=== PATIENT | female | born 1945 | race Caucasian/White ===

== ENCOUNTER 2017-04-06 00:10 | Emergency (ER) | payer MEDICARE, BC, OTHER ==
[2017-04-06] MEDS ORDERED: METHYLPREDNISOLONE INJ 125 MG/2 ML SDV IV ONE (01:31)
[2017-04-06] MEDS ORDERED: IPRATROPIUM/ALBUTEROL 0.5-2.5 MG/3 ML AMPUL NEB ONE (01:31)
[2017-04-06] MEDS ORDERED: ALBUTEROL SULFATE 0.083% NEB 2.5 MG/3 ML AMPUL NEB SCH (01:46)
[2017-04-06] MEDS ORDERED: PREDNISONE 20 MG TABLET PO ONE (02:16)
[2017-04-06] MEDS ORDERED: BENZONATATE 100 MG CAPSULE PO ONE (02:16)
--- NOTE | 2017-04-06 02:19 | ER Document Report ---
ED General - General Chief Complaint: Asthma Exacerbation Stated Complaint: DIFFICULTY BREATHING Time Seen by Provider: 04/06/17 02:04 Notes: Patient is a 72-year-old female with a past medical history of asthma and COPD currently on multiple chronic control medications who presents with 2 weeks of persistent cough and shortness of breath. She states that she had a coughing fit earlier prior to arrival which she felt like she could not breathe during. This prompted her to come to the emergency department for their assessment. She has been using her albuterol inhalers at home with moderate improvement of her symptoms. She is our primary care doctor was started on a course of Augmentin as well as steroids but states this is not completely resolved her symptoms. She is follows with to pulmonology for her underlying COPD and asthma and has a appointment scheduled with him next week. She denies any fever or constitutional symptoms. No known sick contacts. She denies any sputum production. No syncope or chest pain. She states her symptoms are very similar to when she has had bronchitis in the past. TRAVEL OUTSIDE OF THE [place] IN LAST 30 DAYS: No - Related Data Allergies/Adverse Reactions: No Known Allergies Allergy (Verified 04/05/13 14:42) Past Medical History - General Information source: Patient - Social History Smoking Status: Never Smoker Frequency of alcohol use: None Drug Abuse: None Lives with: Spouse/Significant other Family History: Reviewed & Not Pertinent - Past Medical History Cardiac Medical History: Reports: Hx Hypercholesterolemia Malignancy Medical History: Reports: Hx Lung Cancer Past Surgical History: Reports: Hx Orthopedic Surgery - Immunizations Hx Diphtheria, Pertussis, Tetanus Vaccination: Yes Review of Systems - Review of Systems Notes: Constitutional: Negative for fever. HENT: Negative for sore throat. Eyes: Negative for visual changes. Cardiovascular: Negative for chest pain. Respiratory: Positive for shortness of breath. Gastrointestinal: Negative for abdominal pain, vomiting or diarrhea. Genitourinary: Negative for dysuria. Musculoskeletal: Negative for back pain. Skin: Negative for rash. Neurological: Negative for headaches, weakness or numbness. 10 point ROS negative except as marked above and in HPI. Physical Exam - Vital signs Vitals: Temp Pulse Resp BP Pulse Ox 97.9 F 108 H 20 158/76 H 98 04/06/17 00:17 04/06/17 00:17 04/06/17 00:17 04/06/17 00:17 04/06/17 00:17 Interpretation: Tachycardic Notes: PHYSICAL EXAMINATION: GENERAL: Well-appearing, well-nourished and in no acute distress. HEAD: Atraumatic, normocephalic. EYES: Pupils equal round and reactive to light, extraocular movements intact, sclera anicteric, conjunctiva are normal. ENT: nares patent, oropharynx clear without exudates. Moist mucous membranes. NECK: Normal range of motion, supple without lymphadenopathy LUNGS: Coarse breath sounds in the expiratory phase in all lung mendoza with trace end expiratory wheezing and rhonchorous breath sounds. No distress or limited air movement. HEART: Regular rate and rhythm without murmurs ABDOMEN: Soft, nontender, normoactive bowel sounds. No guarding, no rebound. No masses appreciated. EXTREMITIES: Normal range of motion, no pitting or edema. No cyanosis. NEUROLOGICAL: No focal neurological deficits. Moves all extremities spontaneously and on command. PSYCH: Normal mood, normal affect. SKIN: Warm, Dry, normal turgor, no rashes or lesions noted. Course - Re-evaluation Re-evalutation: 04/06/17 02:16 Patient presents with a mild exacerbation of their baseline asthma. Mild wheezing at time of presentation but vitals do not show significant hypoxemia or tachypnea. No retractions. Patient did clinically improve after receiving nebulizers here in the emergency department. Chest x-ray without evidence of an acute pneumonia. Patient able to ambulate without any respiratory distress. Based on patient's overall reassuring assessment, I believe they are stable for outpatient management with steroids. I do not suspect an acute alternative pathology at this time based on history and exam including acute pulmonary embolus, ACS, pneumothorax, or aortic dissection. At this time will discharge with return precautions and follow-up recommendations. Verbal discharge instructions given a the bedside and opportunity for questions given. Medication warnings reviewed. Patient is in agreement with this plan and has verbalized understanding of return precautions and the need for primary care follow-up in the next 24-72 hours. - Vital Signs Vital signs: Temp Pulse Resp BP Pulse Ox 97.9 F 108 H 20 158/76 H 98 04/06/17 00:17 04/06/17 00:17 04/06/17 00:17 04/06/17 00:17 04/06/17 00:17 - Laboratory Result Diagrams: 04/06/17 02:20 - Diagnostic Test Radiology reviewed: Image reviewed, Reports reviewed Radiology results interpreted by me: 04/06/17 02:17 Chest x-ray: No acute infiltrate or pneumothorax Discharge - Discharge Clinical Impression: Bronchitis Asthma exacerbation Qualifiers: Asthma severity: moderate Asthma persistence: persistent Qualified Code(s): J45.41 - Moderate persistent asthma with (acute) exacerbation Condition: Good Disposition: HOME, SELF-CARE Additional Instructions: You were seen for an asthma exacerbation. Your symptoms improved with treatment here in the emergency department. However, it is very important that you return to the emergency department immediately if you began to have worsening difficulty breathing that does not respond to your normal home nebulizers. You are also being sent home on a five-day course of steroids that you should start taking tomorrow. Please also follow closely with your primary care physician. you should also return to emergency department if you develop fever greater than 101, persistent cough, persistent vomiting, pass out, or any other symptoms that are concerning to you. Prescriptions: Benzonatate [Tessalon Perle 100 mg Capsule] 100 mg PO Q8HP PRN #40 cap PRN Reason: Prednisone [Deltasone 20 mg Tablet] 3 tab PO DAILY 5 Days tablet
[2017-04-06 02:57] LABS: ANION GAP 10 (5-19); BLOOD UREA NITROGEN 15 mg/dL (7-20); CALCIUM 10.6 mg/dL (8.4-10.2); CARBON DIOXIDE 29 mmol/L (22-30); CHLORIDE 103 mmol/L (98-107); GLUCOSE 108 mg/dL (75-110); POTASSIUM 4.6 mmol/L (3.6-5.0); SODIUM 141.6 mmol/L (137-145)
--- NOTE | 2017-04-06 03:01 | RADIOLOGY REPORT (SQ) ---
EXAM DESCRIPTION: CHEST SINGLE VIEW CLINICAL HISTORY: 72 years, Female, SOB COMPARISON: None. FINDINGS: Normal lung volume, clear parenchyma, normal cardiac silhouette, and partially imaged screw fixation of the left humeral head. IMPRESSION: No acute cardiopulmonary findings. 2011 [employer]- All Rights Reserved
[2017-04-06 03:37] VITALS: BP 145/75
== END 2017-04-06 03:36 | disposition home or self-care (01) ==
LOC: ER 00:10
DX: J45.41 Moderate persistent asthma with (acute) exacerbation (principal); J44.9 Chronic obstructive pulmonary disease, unspecified; Z79.899 Other long term (current) drug therapy; R05 Cough; R06.02 Shortness of breath; Z85.118 Personal history of other malignant neoplasm of bronchus and lung
CPT/HCPCS: 94640; 99285; 36415; 80048; 71045; A9270 ×3; J7512; J7620

== ENCOUNTER → 2017-08-16 | Outpatient (CLI) | payer MEDICARE, BC, OTHER ==
--- NOTE | 2017-08-16 13:51 | RADIOLOGY REPORT (SQ) ---
EXAM DESCRIPTION: CHEST 2 VIEWS COMPLETED DATE/TIME: 08/16/2017 1:04 pm REASON FOR STUDY: CHRONIC OBSTRUCTIVE PULMONARY DISEASE, UNSPECIFIED COMPARISON: None. EXAM PARAMETERS: NUMBER OF VIEWS: two views TECHNIQUE: Digital Frontal and Lateral radiographic views of the chest acquired. RADIATION DOSE: NA LIMITATIONS: none FINDINGS: LUNGS AND PLEURA: No opacities, masses or pneumothorax. No pleural effusion. MEDIASTINUM AND HILAR STRUCTURES: Faintly radiopaque surgical diann are seen along the right suprah ilar region partial resection right upper lobe. HEART AND VASCULAR STRUCTURES: Heart normal size. No evidence for failure. BONES: Osteoporotic HARDWARE: Fracture stabilization hardware left proximal humerus OTHER: No other significant finding. IMPRESSION: No acute changes TECHNICAL DOCUMENTATION: JOB ID: [id number] [email or web address]- All Rights Reserved Reading location - IP/workstation name: [email or web address]
== END ==
LOC: OD 12:48
PROVIDERS: ATTEND Student in an Organized Health Care Education/Training Program
DX: J44.9 Chronic obstructive pulmonary disease, unspecified (principal); J18.9 Pneumonia, unspecified organism
CPT/HCPCS: 71046

== ENCOUNTER 2018-01-07 12:33 | Inpatient (IN) | payer MEDICARE, BC, OTHER ==
--- NOTE | 2018-01-07 13:29 | ER Document Report ---
ED Medical Screen (RME) - General Chief Complaint: Cough Stated Complaint: WHEEZING Time Seen by Provider: 01/07/18 13:20 Notes: Patient is a 72-year-old female with COPD, chronic bronchitis that presents to the emergency department for chief complaint of productive cough and shortness of breath. Patient reports that the symptoms have been worsening over the past several days, she has had green productive sputum, sinus congestion, and shortness of breath particular with exertion. She is unaware of any sick contacts, she has not received her influenza vaccine, she has been using her home inhalers without much improvement. ROS: Unless otherwise stated in this report the patient's positive and negative responses for review of systems for constitutional, eyes, ENT, cardiovascular, respiratory, gastrointestinal, neurological, genitourinary, musculoskeletal, and integumentary systems and related systems to the presenting problem are either as stated in the HPI or were not pertinent or were negative for the symptoms and/or complaints related to the presenting medical problem. PHYSICAL EXAMINATION: Vital signs reviewed. GENERAL: Well-appearing, well-nourished and in no acute distress. HEAD: Atraumatic, normocephalic. EYES: Pupils equal round extraocular movements intact, conjunctiva are normal. ENT: Nares patent NECK: Normal range of motion CV: Heart regular rate and rhythm LUNGS: Diffuse wheezing throughout all lung mendoza, and rhonchi bilaterally Musculoskeletal: Normal range of motion NEUROLOGICAL: Normal speech PSYCH: Normal mood, normal affect. MDM: Patient seen and examined for rapid initial assessment. Vital signs reviewed. A comprehensive ED assessment and evaluation of the patient, analysis of test results and completion of the medical decision making process will be conducted by additional ED providers. *Note is created using voice recognition software and may contain spelling, syntax or grammatical errors. TRAVEL OUTSIDE OF THE [place] IN LAST 30 DAYS: No - Related Data Allergies/Adverse Reactions: montelukast [From Singulair] Allergy (Verified 01/07/18 13:24) Past Medical History - Social History Frequency of alcohol use: None Drug Abuse: None - Past Medical History Cardiac Medical History: Reports: Hx Hypercholesterolemia Pulmonary Medical History: Reports: Hx Asthma, Hx Bronchitis, Hx COPD Renal/ Medical History: Denies: Hx Peritoneal Dialysis Malignancy Medical History: Reports: Hx Lung Cancer GI Medical History: Reports: Hx Gastroesophageal Reflux Disease Musculoskeltal Medical History: Reports Hx Arthritis Past Surgical History: Reports: Hx Orthopedic Surgery - left arm, left foot - Immunizations Hx Diphtheria, Pertussis, Tetanus Vaccination: Yes Physical Exam - Vital signs Vitals: Temp Pulse Resp BP Pulse Ox 98.3 F 109 H 22 H 140/79 H 95 01/07/18 12:47 01/07/18 12:47 01/07/18 12:47 01/07/18 12:47 01/07/18 12:47 Course - Vital Signs Vital signs: Temp Pulse Resp BP Pulse Ox 98.3 F 109 H 22 H 140/79 H 95 01/07/18 12:47 01/07/18 12:47 01/07/18 12:47 01/07/18 12:47 01/07/18 12:47 Doctor's Discharge - Discharge Referrals: JENNIFER HAMMONDS DO [Primary Care Provider] - Follow up as needed
[2018-01-07] MEDS ORDERED: IPRATROPIUM/ALBUTEROL 0.5-2.5 MG/3 ML AMPUL NEB ONE ×2 (13:30→15:28)
[2018-01-07] MEDS ORDERED: BUDESONIDE NEB 0.5 MG/2 ML AMPUL NEB ONE (13:30)
[2018-01-07] MEDS ORDERED: METHYLPREDNISOLONE INJ 125 MG/2 ML SDV IV ONE (13:30)
[2018-01-07 14:15] LABS: ABSOLUTE LYMPHOCYTES (AUTO) 2.2 10^3/uL (0.5-4.7); ABSOLUTE MONOCYTES (AUTO) 0.5 10^3/uL (0.1-1.4); ABSOLUTE NEUT (AUTO) 4.6 10^3/uL (1.7-8.2); BASOPHILS % (AUTO) 0.4 % (0-2); HEMOGLOBIN 14.3 g/dL (12.0-15.5); LYMPHOCYTES % (AUTO) 29.6 % (13-45); MEAN CORPUSCULAR VOLUME 88 fl (80-97); MONOCYTES % (AUTO) 6.8 % (3-13); PLATELET COUNT 303 10^3/uL (150-450); RED BLOOD COUNT 4.76 10^6/uL (3.72-5.28); RED CELL DISTRIBUTION WIDTH 13.6 % (11.5-14.0); SEGMENTED NEUTROPHILS % (AUTO) 63.2 % (42-78); TOTAL CELLS COUNTED % (AUTO) 100 %; WHITE BLOOD COUNT 7.3 10^3/uL (4.0-10.5)
[2018-01-07 14:33] LABS: ALANINE AMINOTRANSFERASE 21 U/L (9-52); ALBUMIN 4.5 g/dL (3.5-5.0); ALKALINE PHOSPHATASE 42 U/L (38-126); ANION GAP 8 (5-19); ASPARTATE AMINO TRANSFERASE 43 U/L (14-36); BILIRUBIN,DIRECT 0.4 mg/dL (0.0-0.4); BILIRUBIN,TOTAL 0.7 mg/dL (0.2-1.3); BLOOD UREA NITROGEN 11 mg/dL (7-20); CALCIUM 9.7 mg/dL (8.4-10.2); CARBON DIOXIDE 31 mmol/L (22-30); CHLORIDE 101 mmol/L (98-107); GLUCOSE 97 mg/dL (75-110); POTASSIUM 4.3 mmol/L (3.6-5.0); SODIUM 140.1 mmol/L (137-145); TOTAL PROTEIN 7.7 g/dL (6.3-8.2)
--- NOTE | 2018-01-07 14:36 | RADIOLOGY REPORT (SQ) ---
EXAM DESCRIPTION: CHEST SINGLE VIEW COMPLETED DATE/TIME: 01/07/2018 2:27 pm REASON FOR STUDY: cough, shortness of breath COMPARISON: 08/16/2017 EXAM PARAMETERS: NUMBER OF VIEWS: One view. TECHNIQUE: Single frontal radiographic view of the chest acquired. RADIATION DOSE: NA LIMITATIONS: None. FINDINGS: LUNGS AND PLEURA: The lungs are hyperexpanded. There is no infiltrate, effusion, or mass. MEDIASTINUM AND HILAR STRUCTURES: No masses. Contour normal. HEART AND VASCULAR STRUCTURES: Heart normal in size. Normal vasculature. BONES: No acute findings. HARDWARE: None in the chest. OTHER: No other significant finding. IMPRESSION: Chronic lung changes with no acute cardiopulmonary disease. TECHNICAL DOCUMENTATION: JOB ID: [id number] [employer]- All Rights Reserved Reading location - IP/workstation name: [email or web address]
--- NOTE | 2018-01-07 16:35 | RADIOLOGY REPORT (SQ) ---
EXAM DESCRIPTION: CTA CHEST COMPLETED DATE/TIME: 01/07/2018 4:14 pm REASON FOR STUDY: shortness of breath COMPARISON: None. TECHNIQUE: CT scan of the chest performed using helical scanning technique with dynamic intravenous contrast injection. Images reviewed with lung, soft tissue and bone windows. Reconstructed coronal and sagittal MPR images reviewed. Additional 3 dimensional post-processing performed to develop Maximal Intensity Projection images (IL P). All images stored on PACS. All CT scanners at this facility use dose modulation, iterative reconstruction, and/or weight based d osing when appropriate to reduce radiation dose to as low as reasonably achievable (ALARA). [facility]: Dose Right [facility]: CareDose [facility]: Dose Right [facility]: Teradose 4D [facility]: [employer] CONTRAST TYPE AND DOSE: contrast/concentration: Isovue 350.00 mg/ml; Total Contrast Delivered: 64.0 ml; Total Saline Delivered: 90.0 ml Contrast bolus optimized for the pulmonary arteries. Not diagnostic for the aorta. RENAL FUNCTION: GFR > 60. RADIATION DOSE: CT Rad equipment meets quality standard of care and radiation dose reduction techniq ues were employed. CTDIvol: 14.3 - 16.5 mGy. DLP: 526 mGy-cm. . LIMITATIONS: None. FINDINGS: LUNGS AND PLEURA: No masses, infiltrates, or pneumothorax. No pleural effusions or pleura l calcifications. AORTA AND GREAT VESSELS: No aneurysm. Contrast bolus not optimized for the aorta. HEART: No pericardial effusion. PULMONARY ARTERIES: No emboli visualized in the main pulmonary arteries or the segmental branches. HILAR AND MEDIASTINAL STRUCTURES: No identified masses or abnormal nodes. HARDWARE: None in the chest. UPPER ABDOMEN: No significant findings. Limited exam. THYROID AND OTHER SOFT TISSUES: No masses. No adenopathy. BONES: No acute or significant finding. 3D MIPS: Confirm above findings. OTHER: No other significant finding. IMPRESSION: No evidence of pulmonary embolus. COMMENT: Quality ID # [id number]: Final reports with documentation of one or more dose reduction techniques (e.g., Automated exposure control, adjustment of the mA and/or kV according to patient size, use of iterative reconstruction technique) TECHNICAL DOCUMENTATION: JOB ID: [id number] [employer]- All Rights Reserved Reading location - IP/workstation name: [email or web address]
--- NOTE | 2018-01-07 17:26 | ER Document Report ---
ED General - General Chief Complaint: Cough Stated Complaint: WHEEZING Time Seen by Provider: 01/07/18 13:20 Mode of Arrival: Ambulatory Information source: Patient Notes: 72-year-old female presents emergency department with a 3-day history of a productive cough. Patient states that she has been coughing up green sputum. She is been having intermittent fever and chills. Patient does have a history of COPD. She is not on home oxygen. Patient states that she does use a nebulizer. She is not on any steroids or antibiotics at this time. Patient states that her nebulizer treatments are not helping. TRAVEL OUTSIDE OF THE [place] IN LAST 30 DAYS: No - HPI Onset: Other - 3 day Onset/Duration: Gradual Quality of pain: No pain Severity: None Associated symptoms: Chills, Productive cough, Fever Exacerbated by: Denies Relieved by: Denies Similar symptoms previously: Yes Recently seen / treated by doctor: No - Related Data Allergies/Adverse Reactions: montelukast [From Singulair] Allergy (Verified 01/07/18 13:24) Past Medical History - General Information source: Patient - Social History Smoking Status: Former Smoker Frequency of alcohol use: None Drug Abuse: None Family History: Reviewed & Not Pertinent Patient has suicidal ideation: No Patient has homicidal ideation: No - Past Medical History Cardiac Medical History: Reports: Hx Hypercholesterolemia Pulmonary Medical History: Reports: Hx Asthma, Hx Bronchitis, Hx COPD Renal/ Medical History: Denies: Hx Peritoneal Dialysis Malignancy Medical History: Reports: Hx Lung Cancer GI Medical History: Reports: Hx Gastroesophageal Reflux Disease Musculoskeletal Medical History: Reports Hx Arthritis Past Surgical History: Reports: Hx Orthopedic Surgery - left arm, left foot - Immunizations Hx Diphtheria, Pertussis, Tetanus Vaccination: Yes Review of Systems - Review of Systems Constitutional: Chills, Fever EENT: No symptoms reported Cardiovascular: No symptoms reported Respiratory: Short of breath, Wheezing Gastrointestinal: No symptoms reported Genitourinary: No symptoms reported Female Genitourinary: No symptoms reported Musculoskeletal: No symptoms reported Skin: No symptoms reported Hematologic/Lymphatic: No symptoms reported Neurological/Psychological: No symptoms reported -: Yes All other systems reviewed and negative Physical Exam - Vital signs Vitals: Temp Pulse Resp BP Pulse Ox 98.3 F 109 H 22 H 140/79 H 95 01/07/18 12:47 01/07/18 12:47 01/07/18 12:47 01/07/18 12:47 01/07/18 12:47 - General Notes: PHYSICAL EXAMINATION: GENERAL: Well-appearing, well-nourished and in no acute distress. HEAD: Atraumatic, normocephalic. EYES: Pupils equal round and reactive to light, extraocular movements intact, conjunctiva are normal. ENT: Nares patent, oropharynx clear without exudates. Moist mucous membranes. NECK: Normal range of motion, supple without lymphadenopathy LUNGS: Breath sounds clear to auscultation bilaterally and equal. Diffuse wheezing. HEART: Regular rate and rhythm without murmurs ABDOMEN: Soft, nontender, nondistended abdomen. No guarding, no rebound. No masses appreciated. Female : deferred Musculoskeletal: Normal range of motion, no pitting or edema. No cyanosis. NEUROLOGICAL: Cranial nerves grossly intact. Normal speech, normal gait. Normal sensory, motor exams PSYCH: Normal mood, normal affect. SKIN: Warm, Dry, normal turgor, no rashes or lesions noted. Course - Re-evaluation Re-evalutation: 01/07/18 17:24 Labs and imaging obtained. No acute process was identified. Patient was having severe shortness of breath and a CTA of the chest was ordered. No PE was seen. Patient was placed on BiPAP. Patient remove the BiPAP herself. Patient states that she did not want to wear it. Patient was given another DuoNeb treatment. She is breathing easier now. I discussed admission with the patient. She is agreeable with staying in the hospital. Patient is currently stable. I spoke with the hospitalist, . He's agreeable with admitting the patient. - Vital Signs Vital signs: Temp Pulse Resp BP Pulse Ox 98.3 F 109 H 28 H 140/79 H 100 01/07/18 12:47 01/07/18 12:47 01/07/18 15:59 01/07/18 12:47 01/07/18 15:59 - Laboratory Result Diagrams: 01/07/18 14:01 01/07/18 14:01 Laboratory results interpreted by me: 01/07/18 14:01 Carbon Dioxide 31 H AST 43 H Discharge - Discharge Clinical Impression: COPD exacerbation Condition: Good Disposition: ADMITTED OBSERVATION Admitting Provider: Hospitalist Unit Admitted: Telemetry Referrals: JENNIFER HAMMONDS DO [Primary Care Provider] - Follow up as needed
[2018-01-07 17:46] LABS: ARTERIAL BLOOD BASE EXCESS -0.2 mmol/L; ARTERIAL BLOOD H2CO3 1.08 mmol/L (1.05-1.35); ARTERIAL BLOOD HCO3 23.6 mmol/L (20-24); ARTERIAL BLOOD O2 SATURATION 95.8 % (94-98); ARTERIAL BLOOD PH 7.43 (7.35-7.45); ARTERIAL BLOOD PO2 76.7 mmHg (80-100); ARTERIAL BLOOD TOTAL CO2 24.7 mmol/L (21-25)
[2018-01-07 17:47] LABS: ARTERIAL BLOOD FIO2 ROOM AIR
[2018-01-07] MEDS ORDERED: IPRATROPIUM/ALBUTEROL 0.5-2.5 MG/3 ML AMPUL NEB PRN (18:00)
--- NOTE | 2018-01-07 18:24 | PDOC H&P ---
History of Present Illness Admission Date/PCP: 01/07/18 17:54 JENNIFER HAMMONDS DO Patient complains of: Shortness of breath, cough History of Present Illness: ANDREY ARANDA is a 72 year old female past medical history of chronic bronchitis, lung cancer status post right lower lobe lobectomy, asthma ( received 2 doses of Benralizumab this year, her been intubated), COPD not on home oxygen, former smoker, quit 25 years ago, GERD resenting to ED complaining of any shortness of breath, which pleuritic chest pain and low productive cough. She denies any recent travel but has been exposed to other people with upper respiratory infections. She denies any fever, chills, nausea, vomiting, abdominal pain, diarrhea, constipation, urinary symptoms, melena, hematochezia or any lower or upper extremity swelling. In ED she was found to be wheezing was placed on BiPAP could not tolerated. CTA chest was negative for PE. Hospitalist was consulted for admission. Past Medical History Cardiac Medical History: Reports: Hyperlipidema Pulmonary Medical History: Reports: Asthma, Bronchitis, Chronic Obstructive Pulmonary Disease (COPD) Malignancy Medical History: Reports: Lung Cancer GI Medical History: Reports: Gastroesophageal Reflux Disease Musculoskeltal Medical History: Reports: Arthritis Past Surgical History Past Surgical History: Reports: Orthopedic Surgery - left arm, left foot Social History Smoking Status: Former Smoker Family History Family History: Reviewed & Not Pertinent Parental Family History Reviewed: Yes Children Family History Reviewed: Yes Sibling(s) Family History Reviewed.: Yes Medication/Allergy Home Medications: Albuterol Sulfate [Ventolin HFA MDI 18 GM] 2 puff IH Q6HP PRN 01/07/18 Azelastine/Fluticasone [Dymista Nasal Morton] 1 spray NAREB BID 01/07/18 Mometasone Furoate [Asmanex Hfa] 2 puff IH Q12 01/07/18 Omeprazole 40 mg PO DAILY 01/07/18 Tiotropium Tecumseh [Spiriva Handihaler 5 Cap/Kit (18 Mcg/Cap)] 1 cap IH DAILY Allergies/Adverse Reactions: montelukast [From Singulair] Allergy (Verified 01/07/18 13:24) Physical Exam Vital Signs: Temp Pulse Resp BP Pulse Ox 98.3 F 109 H 28 H 140/79 H 100 01/07/18 12:47 01/07/18 12:47 01/07/18 15:59 01/07/18 12:47 01/07/18 15:59 General appearance: PRESENT: no acute distress, well-developed, well-nourished Neck exam: ABSENT: carotid bruit, JVD, lymphadenopathy, thyromegaly Respiratory exam: PRESENT: crackles - Left lower lobe, decreased breath sounds, prolonged expiratory phas. ABSENT: rales, rhonchi, wheezes GI/Abdominal exam: PRESENT: normal bowel sounds, soft. ABSENT: distended, guarding, mass, organolmegaly, rebound, tenderness Neurological exam: PRESENT: alert, awake, oriented to person, oriented to place , oriented to time, oriented to situation, CN II-XII grossly intact. ABSENT: motor sensory deficit Skin exam: PRESENT: dry, intact, warm. ABSENT: cyanosis, rash Results Impressions: Chest X-Ray 01/07/18 13:29 IMPRESSION: Chronic lung changes with no acute cardiopulmonary disease. Chest/Abdomen CTA 01/07/18 15:29 IMPRESSION: No evidence of pulmonary embolus. Assessment & Plan - Diagnosis (1) COPD exacerbation Is this a current diagnosis for this admission?: Yes Plan: Due to chronic smoking. Admit to telemetry, empiric antibiotics, urine culture , DuoNeb, LABA/JOVANNI, Nocturnal BiPAP, steroids. (2) Asthma Is this a current diagnosis for this admission?: No Plan: As problem #1. Patient has established pulmonary care as outpatient. (3) GERD (gastroesophageal reflux disease) Is this a current diagnosis for this admission?: Yes Plan: Restart PPI. H&H stable. Outpatient GI follow-up
[2018-01-07] MEDS ORDERED: AZITHROMYCIN 500 MG in DEXTROSE 5%-WATER 250 ML IV SCH (19:30)
[2018-01-07] MEDS: ENOXAPARIN SODIUM INJ 40 MG/0.4 ML DISP.SYRIN SUBCUT SCH (20:42)
[2018-01-07] MEDS: GUAIFENESIN 600 MG TABLET.SA PO SCH (22:39)
--- NOTE | 2018-01-07 23:20 | EKG REPORT ---
SEVERITY:- BORDERLINE ECG - SINUS RHYTHM PROBABLE LEFT ATRIAL ABNORMALITY BORDERLINE RIGHT AXIS DEVIATION MINIMAL ST DEPRESSION, INFERIOR LEADS : Confirmed by: Marbin Regalado 07-Jan-2018 23:19:27
[2018-01-08] MEDS ORDERED: LANSOPRAZOLE 30 MG TAB.RAP.DR PO SCH (06:00)
[2018-01-08 06:37] LABS: ABSOLUTE LYMPHOCYTES (AUTO) 1.5 10^3/uL (0.5-4.7); ABSOLUTE MONOCYTES (AUTO) 0.3 10^3/uL (0.1-1.4); ABSOLUTE NEUT (AUTO) 4.8 10^3/uL (1.7-8.2); BASOPHILS % (AUTO) 0.4 % (0-2); HEMATOCRIT 40.2 % (36.0-47.0); HEMOGLOBIN 13.6 g/dL (12.0-15.5); LYMPHOCYTES % (AUTO) 22.9 % (13-45); MEAN CORPUSCULAR HEMOGLOBIN 29.8 pg (27.0-33.4); MEAN CORPUSCULAR HGB CONC 33.8 g/dL (32.0-36.0); MEAN CORPUSCULAR VOLUME 88 fl (80-97); MONOCYTES % (AUTO) 4.9 % (3-13); PLATELET COUNT 299 10^3/uL (150-450); RED BLOOD COUNT 4.55 10^6/uL (3.72-5.28); RED CELL DISTRIBUTION WIDTH 13.3 % (11.5-14.0); SEGMENTED NEUTROPHILS % (AUTO) 71.8 % (42-78); TOTAL CELLS COUNTED % (AUTO) 100 %; WHITE BLOOD COUNT 6.7 10^3/uL (4.0-10.5)
[2018-01-08 06:56] LABS: ALANINE AMINOTRANSFERASE 20 U/L (9-52); ALBUMIN 4.3 g/dL (3.5-5.0); ALKALINE PHOSPHATASE 43 U/L (38-126); ANION GAP 9 (5-19); ASPARTATE AMINO TRANSFERASE 24 U/L (14-36); BILIRUBIN,DIRECT 0.2 mg/dL (0.0-0.4); BILIRUBIN,TOTAL 0.7 mg/dL (0.2-1.3); BLOOD UREA NITROGEN 9 mg/dL (7-20); CALCIUM 10.1 mg/dL (8.4-10.2); CARBON DIOXIDE 28 mmol/L (22-30); CHLORIDE 102 mmol/L (98-107); GLUCOSE 112 mg/dL (75-110); POTASSIUM 4.5 mmol/L (3.6-5.0); SODIUM 138.8 mmol/L (137-145); TOTAL PROTEIN 6.9 g/dL (6.3-8.2)
[2018-01-08] MEDS: ENOXAPARIN SODIUM INJ 40 MG/0.4 ML DISP.SYRIN SUBCUT SCH (09:42)
[2018-01-08] MEDS: GUAIFENESIN 600 MG TABLET.SA PO SCH (09:42)
[2018-01-08] MEDS ORDERED: TIOTROPIUM BROMIDE DPI 5 CAP/KIT (18 MCG/CAP) IH SCH (10:00)
[2018-01-08] MEDS ORDERED: PREDNISONE 20 MG TABLET PO SCH (10:00)
[2018-01-08 14:41] VITALS: BP 117/57
[2018-01-08] MEDS ORDERED: ALBUTEROL SULFATE 0.083% NEB 2.5 MG/3 ML AMPUL NEB PRN (15:26)
--- NOTE | 2018-01-08 17:32 | PDOC DISCHARGE SUMMARY ---
General - Admit/Disc Date/PCP Admission Date/Primary Care Provider: 01/07/18 17:54 JENNIFER HAMMONDS, Discharge Date: 01/08/18 - Discharge Diagnosis (1) COPD exacerbation Is this a current diagnosis for this admission?: Yes (2) Asthma exacerbation Is this a current diagnosis for this admission?: Yes - Additional Information Prescriptions: Azithromycin 500 mg PO DAILY #2 tablet Prednisone [Deltasone 20 mg Tablet] 20 mg PO BID 5 Days #10 tablet Home Medications: Albuterol Sulfate [Albuterol Sulfate 2.5mg/3 mL] 1 vial IH Q4HP PRN 01/07/18 Albuterol Sulfate [Ventolin HFA MDI 18 GM] 2 puff IH Q6HP PRN 01/07/18 Azelastine/Fluticasone [Dymista Nasal [place]] 1 spray NAREB BID 01/07/18 Formoterol Fumarate [Foradil] 1 cap IH BID 01/07/18 Mometasone Furoate [Asmanex Hfa] 2 puff IH Q12 01/07/18 Omeprazole 40 mg PO DAILY 01/07/18 Tiotropium [place] [Spiriva Handihaler 5 Cap/Kit (18 Mcg/Cap)] 1 cap IH DAILY Azithromycin 500 mg PO DAILY #2 tablet 01/08/18 Prednisone [Deltasone 20 mg Tablet] 20 mg PO BID 5 Days #10 tablet 01/08/18 History of Present Illness History of Present Illness: ANDREY DUFF is a 72 year old female past medical history of chronic bronchitis, lung cancer status post right lower lobe lobectomy, asthma ( received 2 doses of Benralizumab this year, her been intubated), COPD not on home oxygen, former smoker, quit 25 years ago, GERD resenting to ED complaining of any shortness of breath, which pleuritic chest pain and low productive cough. She denies any recent travel but has been exposed to other people with upper respiratory infections. She denies any fever, chills, nausea, vomiting, abdominal pain, diarrhea, constipation, urinary symptoms, melena, hematochezia or any lower or upper extremity swelling. In ED she was found to be wheezing was placed on BiPAP could not tolerated. CTA chest was negative for PE. Hospital Course Hospital Course: Ms. Duff is a 72 yr old female with asthma and COPD complex, poorly controlled despite optimal home regimen. She has been started on benralizumab by her PCP due to very frequent and recurrent exacerbations. She says from getting exacerbations of 6-8 episodes in a month, her exacerbation has significantly been reduced with the biologic. However, she says she has a lot of exposure to possible tirggers recently including dust and other strong smells at home and at work and was admitted for an exacerbation. She was started on IV steroids and azithromycin. She significantly improved overnight and was weaned off O2 support. She felt she was back to baseline the next day with signficant improvement of wheezing. She says she has mild wheezing on her baseline. She will be discharged on a short course of oral steroids. Physical Exam Vital Signs: Temp Pulse Resp BP Pulse Ox 98.0 F 87 17 117/57 L 100 01/08/18 12:00 01/08/18 12:00 01/08/18 12:00 01/08/18 12:00 01/08/18 12:00 Intake & Output 01/07/18 01/08/18 01/09/18 06:59 06:59 06:59 Intake Total 250 100 Balance 250 100 Weight 144 lb 6.444 oz General appearance: PRESENT: no acute distress, well-developed, well-nourished Head exam: PRESENT: atraumatic, normocephalic Eye exam: PRESENT: conjunctiva pink, EOMI, PERRLA. ABSENT: scleral icterus Ear exam: PRESENT: normal external ear exam Mouth exam: PRESENT: moist, tongue midline Neck exam: ABSENT: carotid bruit, JVD, lymphadenopathy, thyromegaly Respiratory exam: PRESENT: clear to auscultation jennifer, wheezes - mild occasional wheezes , mid to base. ABSENT: rales, rhonchi Cardiovascular exam: PRESENT: RRR. ABSENT: diastolic murmur, rubs, systolic murmur Pulses: PRESENT: normal dorsalis pedis pul GI/Abdominal exam: PRESENT: normal bowel sounds, soft. ABSENT: distended, guarding, mass, organolmegaly, rebound, tenderness Rectal exam: PRESENT: deferred Neurological exam: PRESENT: alert, awake, oriented to person, oriented to place , oriented to time, oriented to situation, CN II-XII grossly intact. ABSENT: motor sensory deficit Results Laboratory Results: 01/08/18 06:27 01/08/18 06:27 01/08/18 01/08/18 06:27 06:27 WBC 6.7 RBC 4.55 Hgb 13.6 Hct 40.2 MCV 88 MCH 29.8 MCHC 33.8 RDW 13.3 Plt Count 299 Seg Neutrophils % 71.8 Lymphocytes % 22.9 Monocytes % 4.9 Eosinophils % 0.0 Basophils % 0.4 Absolute Neutrophils 4.8 Absolute Lymphocytes 1.5 Absolute Monocytes 0.3 Absolute Eosinophils 0.0 Absolute Basophils 0.0 Sodium 138.8 Potassium 4.5 Chloride 102 Carbon Dioxide 28 Anion Gap 9 BUN 9 Creatinine 0.51 L Est GFR ( Amer) > 60 Est GFR (Non-Af Amer) > 60 Glucose 112 H Calcium 10.1 Total Bilirubin 0.7 AST 24 ALT 20 Alkaline Phosphatase 43 Total Protein 6.9 Albumin 4.3 Impressions: Chest X-Ray 01/07/18 13:29 IMPRESSION: Chronic lung changes with no acute cardiopulmonary disease. Chest/Abdomen CTA 01/07/18 15:29 IMPRESSION: No evidence of pulmonary embolus. Qualifiers - * PATIENT BEING DISCHARGED WITH ANY OF THE FOLLOWING DIAGNOSIS: No
== END 2018-01-08 18:16 | disposition home or self-care (01) | DRG 191 ==
LOC: ER 12:33 → OBSVTOIN 17:54 → EH 17:54 → 4S 19:55
PROVIDERS: ADMIT Emergency Medicine; ATTEND Emergency Medicine
DX: J44.1 Chronic obstructive pulmonary disease with (acute) exacerbation (principal); J45.901 Unspecified asthma with (acute) exacerbation; K21.9 Gastro-esophageal reflux disease without esophagitis; Z87.891 Personal history of nicotine dependence; Z79.51 Long term (current) use of inhaled steroids; Z79.52 Long term (current) use of systemic steroids; Z79.899 Other long term (current) drug therapy; Z90.2 Acquired absence of lung [part of]; Z85.118 Personal history of other malignant neoplasm of bronchus and lung
CPT/HCPCS: 36415; 71045; 71275; 80053; 82803; 84484; 85025; 90471; 90686; 93005; 93010; 94640; 94660; 96374; 99285; G0008; J0456; J1650; J2930; J3490; J7060; J7512; J7620

== ENCOUNTER 2018-01-12 11:09 | Emergency (ER) | payer MEDICARE, BC, OTHER ==
[2018-01-12] MEDS ORDERED: ALBUTEROL SULFATE 0.083% NEB 2.5 MG/3 ML AMPUL NEB ONE (11:56)
--- NOTE | 2018-01-12 12:01 | ER Document Report ---
ED General - General Chief Complaint: Shortness Of Breath Stated Complaint: SHORTNESS OF BREATH Time Seen by Provider: 01/12/18 11:37 TRAVEL OUTSIDE OF THE [place] IN LAST 30 DAYS: No - HPI Onset: Last week Onset/Duration: Gradual, Constant Quality of pain: No pain Associated symptoms: Productive cough Exacerbated by: Movement Relieved by: Other - Albuterol Similar symptoms previously: Yes Recently seen / treated by doctor: Yes Notes: Patient is a 72-year-old female that presents to the emergency department for chief complaint of COPD exacerbation. Patient has COPD which has been difficult to manage with frequent exacerbations. She does not require home oxygen. She was recently discharged from the hospital 4 days ago after COPD exacerbation. She has been on prednisone 40 daily since discharge. She is currently taking azithromycin. She states her symptoms are not improving. She denies any new or worsening symptoms. She is still having productive sputum. She denies any chest pain or palpitations. She denies fevers and chills. She states she continues to feel wheezing and short of breath. Shortness of breath is worse with exertion and seems slightly relieved with rest. She is using her albuterol inhalers as well as other prescribed medications for COPD as directed. 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 Past Medical History: COPD, history of lung cancer, GERD Past Surgical History: Right lower lobectomy Social History: Former smoker, denies drugs and alcohol. Family History: Reviewed and noncontributory for presenting illness Allergies: Reviewed, see documented allergy list. REVIEW OF SYSTEMS: CONSTITUTIONAL : No fever No chills No diaphoresis No recent illness EENT: No vision changes No congestion No sore throat CARDIOVASCULAR: No chest pain No palpitations RESPIRATORY: shortness of breath cough difficulty breathing GASTROINTESTINAL: No abdominal pain No nausea No vomiting No diarrhea GENITOURINARY: No dysuria No hematuria No difficulty urinating MUSCULOSKELETAL: No back pain No leg pain No arm pain SKIN: No rashes No lesions LYMPHATIC: No swollen, enlarged glands. NEUROLOGICAL: No lightheadedness No headache No weakness No paresthesias PSYCHIATRIC: No anxiety No depression PHYSICAL EXAMINATION: Vital signs reviewed, nursing noted reviewed. GENERAL: Well-appearing, well-nourished and in no acute distress. HEAD: Atraumatic, normocephalic. EYES: Eyes appear normal, extraocular movements intact, sclera anicteric, conjunctiva are normal. ENT: nares patent, oropharynx clear without exudates. Moist mucous membranes. NECK: Normal range of motion, supple without lymphadenopathy LUNGS: Breath sounds course and wheezing bilaterally. no accessory muscle use. no respiratory distress. HEART: Regular rate and rhythm without murmurs ABDOMEN: Soft, nontender, normoactive bowel sounds. No rebound, guarding, or rigidity. No masses appreciated. EXTREMITIES: Nontender, good range of motion, no pitting or edema. NEUROLOGICAL: No focal neurological deficits. Moves all extremities spontaneously Motor and sensory grossly intact on exam. PSYCH: Normal mood, normal affect. SKIN: Warm, Dry, normal turgor, no rashes or lesions noted on exposed skin - Related Data Allergies/Adverse Reactions: montelukast [From Singulair] Allergy (Verified 01/12/18 11:10) Past Medical History - Social History Smoking Status: Former Smoker Family History: Reviewed & Not Pertinent - Past Medical History Cardiac Medical History: Reports: Hx Hypercholesterolemia Pulmonary Medical History: Reports: Hx Asthma, Hx Bronchitis, Hx COPD Renal/ Medical History: Denies: Hx Peritoneal Dialysis Malignancy Medical History: Reports: Hx Lung Cancer GI Medical History: Reports: Hx Gastroesophageal Reflux Disease Musculoskeletal Medical History: Reports Hx Arthritis Past Surgical History: Reports: Hx Orthopedic Surgery - left arm, left foot - Immunizations Hx Diphtheria, Pertussis, Tetanus Vaccination: Yes Hx Pneumococcal Vaccination: 03/19/16 Review of Systems - Review of Systems Notes: Dictated Physical Exam - Vital signs Vitals: Temp Pulse Resp BP Pulse Ox 98.0 F 105 H 26 H 150/90 H 98 01/12/18 11:13 01/12/18 11:13 01/12/18 11:13 01/12/18 11:13 01/12/18 11:13 - Notes Notes: Dictated Course - Re-evaluation Re-evalutation: 01/12/18 12:01 Vitals reviewed. Nursing notes reviewed. Patient is oxygenating well on room air. She is in no acute respiratory distress and is not using accessory muscles. She does have wheezing and was given albuterol in the emergency room. She has already taken 40 mg of prednisone today as well as azithromycin. 01/12/18 13:32 Patient reevaluated and is feeling much better. She states she coughed up some thick sputum and now feels she is breathing well. She is still oxygenating on room air and in no acute respiratory distress. She has no accessory muscle use. Patient will be given a steroid taper as well as Levaquin for her thick sputum production. She will follow with her licensed veterinary technician at [place] for reevaluation. She will return for new or worsening symptoms. Discharged in stable condition. Chest X-Ray 01/12/18 11:55 IMPRESSION: NO ACUTE RADIOGRAPHIC FINDING IN THE CHEST. - Vital Signs Vital signs: Temp Pulse Resp BP Pulse Ox 98.0 F 105 H 26 H 150/90 H 98 01/12/18 11:13 01/12/18 11:13 01/12/18 11:13 01/12/18 11:13 01/12/18 11:13 Discharge - Discharge Clinical Impression: COPD (chronic obstructive pulmonary disease) Qualifiers: COPD type: COPD with acute exacerbation Qualified Code(s): J44.1 - Chronic obstructive pulmonary disease with (acute) exacerbation Condition: Stable Disposition: HOME, SELF-CARE Instructions: Chronic Obstructive Lung Disease ([facility]) Additional Instructions: Please return to the emergency department if you have any worsening, or concern of your symptoms. Please return to the emergency department if you develop chest pain, difficulty breathing, severe abdominal pain, or ongoing vomiting. Please follow-up with your primary care physician in 2-3 days and any other recommended physicians. If prescribed, take all medications as directed. If you have any questions or concerns do not hesitate to return the emergency department for evaluation. Follow-up with your licensed veterinary technician at [facility] in the next 1-2 weeks for further treatment. Begin taking Levaquin tomorrow. Begin taking the prednisone taper after finishing your current prescription. Prescriptions: Levofloxacin [Levaquin 750 mg Tablet] 750 mg PO DAILY #5 tablet Prednisone [Deltasone 20 mg Tablet] See Protocol PO DAILY #9 tablet Referrals: JENNIFER HAMMONDS DO [Primary Care Provider] - Follow up in 3-5 days
--- NOTE | 2018-01-12 12:37 | RADIOLOGY REPORT (SQ) ---
EXAM DESCRIPTION: CHEST SINGLE VIEW COMPLETED DATE/TIME: 01/12/2018 12:23 pm REASON FOR STUDY: cough COMPARISON: 01/07/2018 and earlier EXAM PARAMETERS: NUMBER OF VIEWS: One view. TECHNIQUE: Single frontal radiographic view of the chest acquired. RADIATION DOSE: NA LIMITATIONS: None. FINDINGS: LUNGS AND PLEURA: No opacities, masses or pneumothorax. No pleural effusion. MEDIASTINUM AND HILAR STRUCTURES: No masses. Contour normal. HEART AND VASCULAR STRUCTURES: Heart normal in size. Normal vasculature. BONES: No acute findings. HARDWARE: Incompletely visualized fixation screws of the left humerus. OTHER: No other significant finding. IMPRESSION: NO ACUTE RADIOGRAPHIC FINDING IN THE CHEST. TECHNICAL DOCUMENTATION: JOB ID: [id number] [employer]- All Rights Reserved Reading location - IP/workstation name: [email or web address]
[2018-01-12 13:38] VITALS: BP 134/78
== END 2018-01-12 13:40 | disposition home or self-care (01) ==
LOC: ER 11:09
DX: J44.1 Chronic obstructive pulmonary disease with (acute) exacerbation (principal); R05 Cough; R06.02 Shortness of breath; Z79.899 Other long term (current) drug therapy; Z85.118 Personal history of other malignant neoplasm of bronchus and lung; Z90.2 Acquired absence of lung [part of]; Z87.891 Personal history of nicotine dependence; Z88.8 Allergy status to other drugs, medicaments and biological substances
CPT/HCPCS: 94640; 99285; 71045; A9270

== ENCOUNTER → 2018-02-06 | Outpatient (CLI) | payer MEDICARE, BC, OTHER ==
--- NOTE | 2018-02-06 11:55 | WOMENS IMAGING REPORT ---
EXAM DESCRIPTION: 3D SCREENING MAMMO BILAT COMPLETED DATE/TIME: 02/06/2018 11:36 am REASON FOR STUDY: SCREENING MAMMO Z12.31 ENCNTR SCREEN MAMMOGRAM FOR MALIGNANT NEOPLASM OF AKHIL COMPARISON: None. TECHNIQUE: Standard craniocaudal and mediolateral oblique views of each breast recorded using digita l acquisition and breast tomosynthesis. LIMITATIONS: None. FINDINGS: No masses, calcifications or architectural distortion. No areas of suspicion. Benign bila teral breast parenchymal and arterial vascular calcifications are present Read with the assistance of CAD. .[facility] - R2 Cenova Version 1.3 .[facility] Imaging - R2 Cenova Version 1.3 .[facility] Imaging - R2 Cenova Version 2.4 .[facility] - R2 Cenova Version 2.4 .[facility] - R2 Glove Examiner Version 9.2 IMPRESSION: NORMAL MAMMOGRAM. BIRADS 1. BREAST DENSITY: d. The breasts are extremely dense, which lowers the sensitivity of mammography. BIRAD: 1 NEGATIVE RECOMMENDATION: ROUTINE SCREENING Please consider bilateral screening tomosynthesis in January 2019 given extremely dense fibroglandul ar tissue bilaterally COMMENT: The patient has been notified of the results by letter per SA requirements. Additional no tification policies are in place for contacting patient with suspicious or incomplete findings. Quality ID #225: The [employer] recommends an annual screening mammogram for women aged 40 years or over. This facility utilizes a reminder system to ensure that all patients receive reminder letters, and/or direct phone calls for appointments. This includes reminders for routine scr eening mammograms, diagnostic mammograms, or other Breast Imaging Interventions when appropriate. Th is patient will be placed in the appropriate reminder system. The [place] (ACR) has developed recommendations for screening MRI of the breast s in certain patient populations, to be used in conjunction with mammography. Breast MRI surveillanc e may be appropriate for women with more than 20% lifetime risk of developing breast cancer as deter mined by genetic testing, significant family history of the disease, or history of mantle radiation f or Hodgkins Disease. ACR Practice Guidelines 2008. DBT Technology DBT is a type of tomographic mammography. With conventional mammography, overlapping breast tissue ma y make lesions difficult to detect, even with good compression. DBT uses an x-ray tube that rotates a round the breast, taking images at different angles. These images are then combined to create thin sl ices of the breast that the radiologist can view as a 3D reconstruction. The Hologic unit can perform full-field digital mammograms (2D imaging); or DBT (3D imaging); or both, in a combination mode that quickly performs both the mammogram and the tomosynthesis scan while the breast is still compressed. PQRS 6045F: Fluoroscopic imaging is not utilized for breast tomosynthesis. TECHNICAL DOCUMENTATION: FINDING NUMBER: (1) ASSESSMENT: (1) JOB ID: [id number] [employer]- All Rights Reserved Reading location - IP/workstation name: [email or web address]
== END ==
LOC: WI 11:04
PROVIDERS: ATTEND Student in an Organized Health Care Education/Training Program
DX: Z12.31 Encounter for screening mammogram for malignant neoplasm of breast (principal)
CPT/HCPCS: 77063; 77067

== ENCOUNTER 2018-06-24 07:26 | Day surgery (SDC) | payer MEDICARE, BC, OTHER ==
[2018-06-24] MEDS ORDERED: PROPOFOL INJ 200 MG/20 ML VIAL IV ONE (07:40)
[2018-06-24 09:26] VITALS: BP 132/75
--- NOTE | 2018-06-24 12:55 | Operative Report ---
Operative Report DATE OF SURGERY: 06/24/18 Operative Report: The risks, benefits and alternatives of the procedure including the risk of bleeding, perforation requiring surgery have been explained to the patient in detail and informed consent has been obtained. There is taken back to the endoscopy suite and placed in the left, lateral decubital position. Timeout was called. Propofol medication is administered. A rectal examination is done which did not reveal any an Olympus videoscope was introduced into the patient's rectum. The scope was then carefully advanced all the way to the cecum. The cecum was identified by the usual anatomical landmarks including the ileocecal valve as well as the appendiceal office. Photodocumentation is obtained. Scope was then sequentially pulled back via the various segments of the colon including the ascending colon, hepatic flexure, transverse colon, splenic flexure, descending colon and finally into the rectosigmoid portions of the colon. Retroflexion maneuver was performed. PREOPERATIVE DIAGNOSIS: Surveillance colonoscopy due to personal history of polyp POSTOPERATIVE DIAGNOSIS: Sigmoid colon polyp was removed via biopsy forceps. Diverticulosis without any evidence of diverticulitis. Internal hemorrhoids OPERATION: Colonoscopy with biopsy SURGEON: INOCENCIO CANTOR ANESTHESIA: LMAC TISSUE REMOVED OR ALTERED: As noted above. COMPLICATIONS: None. ESTIMATED BLOOD LOSS: None. INTRAOPERATIVE FINDINGS: As noted above. PROCEDURE: Patient tolerated the procedure well. No immediate postprocedure complications are noted. Patient discharged in good condition. Discharge date 06/24/2018. Discharge diet: Regular. Discharge activity: Regular. 2-3-week follow-up to discuss findings. Patient is instructed to call the office or proceed to the emergency room should there be any further questions. 5-year surveillance colonoscopy.
== END 2018-06-24 09:20 | disposition home or self-care (01) ==
LOC: END 07:26
PROVIDERS: ATTEND Internal Medicine Gastroenterology
DX: Z12.11 Encounter for screening for malignant neoplasm of colon (principal); D12.5 Benign neoplasm of sigmoid colon; K64.8 Other hemorrhoids; K57.30 Diverticulosis of large intestine without perforation or abscess without bleeding; Z86.010 Personal history of colon polyps; J44.9 Chronic obstructive pulmonary disease, unspecified; E78.2 Mixed hyperlipidemia; Z87.891 Personal history of nicotine dependence; Z79.51 Long term (current) use of inhaled steroids; Z79.899 Other long term (current) drug therapy
CPT/HCPCS: 45380; 88305 ×2; J2704; 811

== ENCOUNTER → 2019-02-28 | Outpatient (CLI) | payer MEDICARE, BC, OTHER ==
--- NOTE | 2019-02-28 14:32 | WOMENS IMAGING REPORT ---
EXAM DESCRIPTION: 3D SCREENING MAMMO BILAT COMPLETED DATE/TIME: 02/28/2019 10:50 am REASON FOR STUDY: Z12.31 SCREENING MAMMO Z12.31 ENCNTR SCREEN MAMMOGRAM FOR MALIGNANT NEOPLASM OF B RE COMPARISON: 2018 EXAM PARAMETERS: Views: Standard craniocaudal and mediolateral oblique views of each breast recorded using digital acquisition and breast tomosynthesis. Read with the assistance of CAD. .[facility] - [employer] Paper Cup Handle Machine Operator Version 9.2 LIMITATIONS: None. FINDINGS: No suspicious masses, suspicious calcifications or architectural distortion. No areas of c oncern. IMPRESSION: NEGATIVE MAMMOGRAM. BIRADS 1. BREAST DENSITY: c. The breasts are heterogeneously dense, which may obscure small masses. BIRAD: ASSESSMENT: 1 NEGATIVE RECOMMENDATION: ROUTINE SCREENING COMMENT: The patient has been notified of the results by letter per MQSA requirements. Additional no tification policies are in place for contacting patient with suspicious or incomplete findings. Quality ID #225: The [employer] recommends an annual screening mammogram for women aged 40 years or over. This facility utilizes a reminder system to ensure that all patients receive reminder letters, and/or direct phone calls for appointments. This includes reminders for routine scr eening mammograms, diagnostic mammograms, or other Breast Imaging Interventions when appropriate. Th is patient will be placed in the appropriate reminder system. TECHNICAL DOCUMENTATION: FINDING NUMBER: (1) ASSESSMENT: (1) JOB ID: [id number] [id number]- All Rights Reserved Reading location - IP/workstation name: [email or web address]
== END ==
LOC: WI 10:15
PROVIDERS: ATTEND Physician Assistant
DX: Z12.31 Encounter for screening mammogram for malignant neoplasm of breast (principal)
CPT/HCPCS: 77063; 77067

== ENCOUNTER 2019-03-10 09:24 | Emergency (ER) | payer MEDICARE, BC, OTHER ==
[2019-03-10] MEDS ORDERED: METHYLPREDNISOLONE INJ 125 MG/2 ML SDV IV ONE (09:36)
[2019-03-10] MEDS ORDERED: ALBUTEROL SULFATE 0.083% NEB 2.5 MG/3 ML AMPUL NEB ONE ×2 (09:36→10:31)
--- NOTE | 2019-03-10 09:39 | ER Document Report ---
ED Medical Screen (RME) - General Chief Complaint: Shortness Of Breath Stated Complaint: SHORTNESS OF BREATH,COUGH Time Seen by Provider: 03/10/19 09:28 Primary Care Provider: MALINA FOSTER PA-C [Primary Care Provider] - Follow up as needed Notes: 74-year-old female with COPD, chronic bronchitis, asthma with history of right upper lobe wedge resection who is a former smoker that quit 25 years ago presents to the emergency department with shortness of breath wheezing for the past 2 weeks. Patient has had a productive cough with green sputum. No fevers. Dyspnea on exertion. No fevers. Patient is tried using her albuterol inhaler and nebulizers persistently for the last 2 weeks with no resolution. She last used her nebulizer yesterday evening and of note she is tachycardic at 113. Exam: Well-appearing and nontoxic speaking in full sentences, rhonchi and wheezing heard in all mendoza, tachycardia with regular rhythm, S1-S2 heard. I have greeted and performed a rapid initial assessment of this patient. A comprehensive ED assessment and evaluation of the patient, analysis of test results and completion of medical decision making process will be conducted by an additional ED providers. TRAVEL OUTSIDE OF THE [place] IN LAST 30 DAYS: No - Related Data Allergies/Adverse Reactions: montelukast [From Singulair] Allergy (Severe, Verified 06/24/18 07:33) Anaphylaxis ipratropium Allergy (Verified 03/10/19 09:32) Respiratory distress levofloxacin [From Levaquin] Allergy (Verified 03/10/19 09:32) Past Medical History - Past Medical History Cardiac Medical History: Reports: Hx Hypercholesterolemia Denies: Hx Coronary Artery Disease, Hx Heart Attack, Hx Hypertension Pulmonary Medical History: Reports: Hx Asthma, Hx Bronchitis, Hx COPD Denies: Hx Pneumonia Neurological Medical History: Denies: Hx Cerebrovascular Accident, Hx Seizures Renal/ Medical History: Denies: Hx Peritoneal Dialysis Malignancy Medical History: Reports: Hx Lung Cancer GI Medical History: Reports: Hx Gastroesophageal Reflux Disease Musculoskeltal Medical History: Reports Hx Arthritis Past Surgical History: Reports: Hx Orthopedic Surgery - left arm, left foot - Immunizations Hx Diphtheria, Pertussis, Tetanus Vaccination: Yes Physical Exam - Vital signs Vitals: Temp Pulse Resp BP Pulse Ox 97.7 F 113 H 24 H 165/93 H 96 03/10/19 09:28 03/10/19 09:28 03/10/19 09:28 03/10/19 09:28 03/10/19 09:28 Course - Vital Signs Vital signs: Temp Pulse Resp BP Pulse Ox 97.7 F 113 H 24 H 165/93 H 96 03/10/19 09:28 03/10/19 09:28 03/10/19 09:28 03/10/19 09:28 03/10/19 09:28 Doctor's Discharge - Discharge Referrals: MALINA FOSTER PA-C [Primary Care Provider] - Follow up as needed
[2019-03-10 09:56] LABS: ABSOLUTE LYMPHOCYTES (AUTO) 2.3 10^3/uL (0.5-4.7); ABSOLUTE MONOCYTES (AUTO) 0.6 10^3/uL (0.1-1.4); ABSOLUTE NEUT (AUTO) 4.7 10^3/uL (1.7-8.2); BASOPHILS % (AUTO) 0.4 % (0-2); HEMATOCRIT 42.9 % (36.0-47.0); HEMOGLOBIN 14.6 g/dL (12.0-15.5); LYMPHOCYTES % (AUTO) 29.7 % (13-45); MEAN CORPUSCULAR HEMOGLOBIN 30.1 pg (27.0-33.4); MEAN CORPUSCULAR HGB CONC 34.1 g/dL (32.0-36.0); MEAN CORPUSCULAR VOLUME 88 fl (80-97); MONOCYTES % (AUTO) 7.4 % (3-13); PLATELET COUNT 328 10^3/uL (150-450); RED BLOOD COUNT 4.86 10^6/uL (3.72-5.28); RED CELL DISTRIBUTION WIDTH 13.8 % (11.5-14.0); SEGMENTED NEUTROPHILS % (AUTO) 62.5 % (42-78); TOTAL CELLS COUNTED % (AUTO) 100 %; WHITE BLOOD COUNT 7.6 10^3/uL (4.0-10.5)
[2019-03-10 10:22] LABS: ALBUMIN 4.8 g/dL (3.5-5.0); ALKALINE PHOSPHATASE 47 U/L (38-126); ANION GAP 11 (5-19); ASPARTATE AMINO TRANSFERASE 28 U/L (14-36); BILIRUBIN,DIRECT 0.2 mg/dL (0.0-0.4); BILIRUBIN,TOTAL 0.8 mg/dL (0.2-1.3); BLOOD UREA NITROGEN 11 mg/dL (7-20); CALCIUM 10.1 mg/dL (8.4-10.2); CARBON DIOXIDE 30 mmol/L (22-30); CHLORIDE 103 mmol/L (98-107); GLUCOSE 99 mg/dL (75-110); POTASSIUM 3.7 mmol/L (3.6-5.0); TOTAL PROTEIN 8.4 g/dL (6.3-8.2)
[2019-03-10 10:31] LABS: APPEARANCE,URINE SLIGHTLY-CLOUDY; BILIRUBIN,URINE NEGATIVE (NEGATIVE); COLOR,URINE YELLOW; GLUCOSE, URINE NEGATIVE (NEGATIVE); KETONES,URINE TRACE mg/dL (NEGATIVE); LEUKOCYTE ESTERASE,URINE LARGE (NEGATIVE); NITRITE,URINE NEGATIVE (NEGATIVE); PROTEIN,URINE NEGATIVE (NEGATIVE); URINE SPECIFIC GRAVITY 1.019
[2019-03-10] MEDS ORDERED: GUAIFENESIN/D-METHORPHAN (200-20 MG) SYRUP 10 ML PO ONE (10:31)
--- NOTE | 2019-03-10 10:58 | RADIOLOGY REPORT (SQ) ---
EXAM DESCRIPTION: CHEST 2 VIEWS COMPLETED DATE/TIME: 03/10/2019 10:43 am REASON FOR STUDY: SOB, wheezing, rhonchi x 2 weeks COMPARISON: CT chest 01/07/2018 Chest films 08/16/2017, 01/07/2018, 01/12/2018 EXAM PARAMETERS: NUMBER OF VIEWS: two views TECHNIQUE: Digital Frontal and Lateral radiographic views of the chest acquired. RADIATION DOSE: NA LIMITATIONS: none FINDINGS: LUNGS AND PLEURA: No opacities, masses or pneumothorax. No pleural effusion. MEDIASTINUM AND HILAR STRUCTURES: No masses or contour abnormalities. HEART AND VASCULAR STRUCTURES: Heart normal size. No evidence for failure. BONES: Old left humeral head fracture with hardware HARDWARE: None in the chest. OTHER: No other significant finding. IMPRESSION: No acute findings TECHNICAL DOCUMENTATION: JOB ID: [id number] [employer]- All Rights Reserved Reading location - IP/workstation name: [email or web address]
[2019-03-10] MEDS ORDERED: NORMAL SALINE 1000 ML 1,000 ML IV ONE (11:18)
--- NOTE | 2019-03-10 12:14 | ER Document Report ---
ED Respiratory Problem - General Chief Complaint: Shortness Of Breath Stated Complaint: SHORTNESS OF BREATH,COUGH Time Seen by Provider: 03/10/19 09:28 Primary Care Provider: MALINA FOSTER PA-C [Primary Care Provider] - Follow up in 3-5 days TRAVEL OUTSIDE OF THE [place] IN LAST 30 DAYS: No - HPI Notes: 74-year-old female to the emergency department with complaints of 2 weeks of productive cough, wheezing and shortness of breath. She denies any fevers or chills. She states that she has been using her nebulizer and albuterol inhaler very frequently during the day. She also continues to use her maintenance inhaler. She states that she is bringing up greenish phlegm. She states that she is a former smoker and quit 25 years ago. She does have a history of asthma and COPD. In 2008 she had a right lung cancer that was resected. She is currently in remission. She does not use oxygen at home. She denies any chest pain, nausea, vomiting. - Related Data Allergies/Adverse Reactions: montelukast [From Singulair] Allergy (Severe, Verified 03/10/19 09:49) Anaphylaxis ipratropium Allergy (Verified 03/10/19 09:32) Respiratory distress levofloxacin [From Levaquin] Allergy (Verified 03/10/19 09:32) Past Medical History - General Information source: Patient, Relative - Social History Smoking Status: Former Smoker Frequency of alcohol use: None Drug Abuse: None Lives with: Spouse/Significant other Family History: Reviewed & Not Pertinent Patient has suicidal ideation: No Patient has homicidal ideation: No - Past Medical History Cardiac Medical History: Reports: Hx Hypercholesterolemia Denies: Hx Coronary Artery Disease, Hx Heart Attack, Hx Hypertension Pulmonary Medical History: Reports: Hx Asthma, Hx Bronchitis, Hx COPD Denies: Hx Pneumonia Neurological Medical History: Denies: Hx Cerebrovascular Accident, Hx Seizures Renal/ Medical History: Denies: Hx Peritoneal Dialysis Malignancy Medical History: Reports: Hx Lung Cancer GI Medical History: Reports: Hx Gastroesophageal Reflux Disease Musculoskeletal Medical History: Reports Hx Arthritis Past Surgical History: Reports: Hx Orthopedic Surgery - left arm, left foot - Immunizations Hx Diphtheria, Pertussis, Tetanus Vaccination: Yes Hx Pneumococcal Vaccination: 03/19/16 Review of Systems - Review of Systems Constitutional: Malaise. denies: Chills, Fever EENT: Throat pain. denies: Ear pain Cardiovascular: denies: Chest pain, Palpitations, Syncope, Dizziness, Lightheaded Respiratory: See HPI, Cough, Short of breath, Wheezing Gastrointestinal: denies: Abdominal pain, Diarrhea, Nausea, Vomiting Genitourinary: No symptoms reported Female Genitourinary: No symptoms reported Musculoskeletal: No symptoms reported Skin: No symptoms reported Hematologic/Lymphatic: No symptoms reported Neurological/Psychological: No symptoms reported -: Yes All other systems reviewed and negative Physical Exam - Vital signs Vitals: Temp Pulse Resp BP Pulse Ox 97.7 F 113 H 24 H 165/93 H 96 03/10/19 09:28 03/10/19 09:28 03/10/19 09:28 03/10/19 09:28 03/10/19 09:28 Interpretation: Hypertensive, Tachycardic, Tachypneic - General General appearance: Alert Notes: Patient in no respiratory distress. She does cough quite a bit. - HEENT Head: Normocephalic, Atraumatic Eyes: Normal Pupils: PERRL Ears: Normal External canal: Normal Tympanic membrane: Normal Sinus: Normal Nasal: Normal Mouth/Lips: Normal Mucous membranes: Normal Pharynx: Normal, Post nasal drainage. No: Peritonsillar abscess, Tonsillar hypertrophy, Uvular edema, Potential airway comprom. Neck: Normal, Supple. No: Lymphadenopathy, Meningismus - Respiratory Respiratory status: No respiratory distress Chest status: Nontender Breath sounds: Decreased air movement, Productive cough, Wheezing - There are diffuse expiratory wheezings throughout. Patient with productive cough. She has decreased air movement. She does not have accessory muscle use. She is not tripoding. She is not having pursed lip breathing. She is not in any respiratory distress. No: Rales, Rhonchi, Stridor Chest palpation: Normal - Cardiovascular Rhythm: Regular Heart sounds: Normal auscultation Murmur: No Notes: No leg swelling - Abdominal Inspection: Normal Distension: No distension Bowel sounds: Normal Tenderness: Nontender Organomegaly: No organomegaly - Back Back: Normal, Nontender. 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 With patient's history of lung CA, COPD, and 2 week history of productive cough, will cover with Abx -- doxycycline. Will also place on steroid taper and give refill for her nebulizer solution. Patient agrees with the plan. She has had improved of her vitals s igns - tachycardia improved, which is likely also related to albuterol. She has been able to walk in the ER without difficulty. No hypoxia. - Vital Signs Vital signs: Temp Pulse Resp BP Pulse Ox 97.7 F 113 H 21 H 139/73 H 97 03/10/19 09:28 03/10/19 09:28 03/10/19 13:01 03/10/19 13:00 03/10/19 13:01 03/10/19 12:14 Selected Entries 03/10/19 03/10/19 12:00 12:01 Heart Rate ( 107 Monitors) Respiratory 19 Rate Blood Pressure 119/79 Blood Pressure 92 Mean O2 Sat by Pulse 100 Oximetry noted improved vitals signs -- still tachycardia , but has had several breathing treatments. Will continue to monitor the patient closely. 03/10/19 13:55 Selected Entries 03/10/19 03/10/19 03/10/19 12:00 12:01 12:30 Heart Rate ( 107 Monitors) Respiratory 19 14 Rate Blood Pressure 119/79 Blood Pressure 92 Mean O2 Sat by Pulse 100 Oximetry 03/10/19 13:00 Heart Rate ( 112 Monitors) Respiratory 13 Rate Blood Pressure 139/73 H Blood Pressure 95 Mean O2 Sat by Pulse 98 Oximetry - Laboratory Result Diagrams: 03/10/19 09:40 03/10/19 09:40 Laboratory results interpreted by me: 03/10/19 03/10/19 09:40 10:20 Total Protein 8.4 H Urine Ketones TRACE H Urine Urobilinogen 2.0 H Ur Leukocyte Esterase LARGE H Urine Ascorbic Acid 20 H - Diagnostic Test Radiology reviewed: Image reviewed, Reports reviewed Discharge - Discharge Clinical Impression: Bronchitis, Wheezing, COPD exacerbation Condition: Stable Disposition: HOME, SELF-CARE Instructions: Bronchitis With Bronchospasm (Wheezing) ([facility]) Additional Instructions: TAKE MEDICINES PRESCRIBED. RETURN IF WORSE. FOLLOW UP WITH PRIMARY CARE. Prescriptions: Doxycycline Hyclate 100 mg PO BID #14 capsule Prednisone [Sterapred Ds] 1 pkg PO ASDIR PRN 12 Days tab.ds.pk PRN Reason: Albuterol Sulfate [Ventolin 0.083% Neb 2.5 mg/3 mL Ampul] 1 vial NEB Q4 #100 vial Referrals: MALINA FOSTER PA-C [Primary Care Provider] - Follow up in 3-5 days
--- NOTE | 2019-03-10 12:43 | EKG REPORT ---
SEVERITY:- ABNORMAL ECG - SINUS TACHYCARDIA RIGHT ATRIAL ABNORMALITY NONSPECIFIC T ABNORMALITIES, INFERIOR LEADS : Confirmed by: Ashley Abarca MD 10-Mar-2019 12:43:28
[2019-03-10] MEDS ORDERED: DOXYCYCLINE HYCLATE 100 MG TABLET PO ONE (13:28)
[2019-03-10 14:00] VITALS: BP 122/69
== END 2019-03-10 13:44 | disposition home or self-care (01) ==
LOC: ER 09:24
DX: J44.0 Chronic obstructive pulmonary disease with (acute) lower respiratory infection (principal); J44.1 Chronic obstructive pulmonary disease with (acute) exacerbation; R06.02 Shortness of breath; R05 Cough; Z85.118 Personal history of other malignant neoplasm of bronchus and lung; Z98.890 Other specified postprocedural states; Z87.891 Personal history of nicotine dependence
CPT/HCPCS: 93005; 94640 ×2; 99285; 96361; 96374; 36415; 85025; 80053; 81001; 84484; 71046; 93010; A9270 ×3; J2930; J7030; J3490

== ENCOUNTER 2020-01-22 07:34 | Emergency (ER) | payer MEDICARE, BC, OTHER ==
[2020-01-22 08:14] LABS: APPEARANCE,URINE CLEAR; BILIRUBIN,URINE NEGATIVE (NEGATIVE); COLOR,URINE YELLOW; GLUCOSE, URINE NEGATIVE (NEGATIVE); KETONES,URINE 20 mg/dL (NEGATIVE); LEUKOCYTE ESTERASE,URINE NEGATIVE (NEGATIVE); NITRITE,URINE NEGATIVE (NEGATIVE); PROTEIN,URINE NEGATIVE (NEGATIVE); URINE SPECIFIC GRAVITY 1.011; UROBILINOGEN,URINE NEGATIVE mg/dL (<2.0)
[2020-01-22 08:31] LABS: URINE AMPHETAMINES SCREEN NEGATIVE; URINE BARBITURATES SCREEN NEGATIVE; URINE BENZODIAZEPINES SCREEN NEGATIVE; URINE COCAINE SCREEN NEGATIVE; URINE MARIJUANA (THC) SCREEN NEGATIVE; URINE METHADONE SCREEN NEGATIVE; URINE PHENCYCLIDINE SCREEN NEGATIVE
[2020-01-22 08:51] LABS: ABSOLUTE LYMPHOCYTES (AUTO) 1.7 10^3/uL (0.5-4.7); ABSOLUTE MONOCYTES (AUTO) 0.5 10^3/uL (0.1-1.4); ABSOLUTE NEUT (AUTO) 5.8 10^3/uL (1.7-8.2); BASOPHILS % (AUTO) 0.1 % (0-2); HEMATOCRIT 41.1 % (36.0-47.0); HEMOGLOBIN 14.5 g/dL (12.0-15.5); LYMPHOCYTES % (AUTO) 20.8 % (13-45); MEAN CORPUSCULAR HEMOGLOBIN 31.4 pg (27.0-33.4); MEAN CORPUSCULAR HGB CONC 35.3 g/dL (32.0-36.0); MEAN CORPUSCULAR VOLUME 89 fl (80-97); MONOCYTES % (AUTO) 6.3 % (3-13); PLATELET COUNT 250 10^3/uL (150-450); RED BLOOD COUNT 4.62 10^6/uL (3.72-5.28); SEGMENTED NEUTROPHILS % (AUTO) 72.8 % (42-78); TOTAL CELLS COUNTED % (AUTO) 100 %; WHITE BLOOD COUNT 7.9 10^3/uL (4.0-10.5)
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
[2020-01-22 09:10] LABS: ALKALINE PHOSPHATASE 41 U/L (38-126); ANION GAP 8 (5-19); ASPARTATE AMINO TRANSFERASE 49 U/L (14-36); BILIRUBIN,TOTAL 0.6 mg/dL (0.2-1.3); BLOOD UREA NITROGEN 8 mg/dL (7-20); CALCIUM 9.5 mg/dL (8.4-10.2); CARBON DIOXIDE 29 mmol/L (22-30); CHLORIDE 100 mmol/L (98-107); GLUCOSE 91 mg/dL (75-110); POTASSIUM 3.4 mmol/L (3.6-5.0); TOTAL PROTEIN 6.4 g/dL (6.3-8.2)
[2020-01-22 09:15] LABS: ALCOHOL < 10 mg/dL (NONE DETECTED)
[2020-01-22 09:16] LABS: ACETAMINOPHEN < 10 ug/mL (10-30); SALICYLATE < 1.0 mg/dL (2.0-20.0)
--- NOTE | 2020-01-22 10:53 | RADIOLOGY REPORT (SQ) ---
EXAM DESCRIPTION: CT HEAD WITHOUT IMAGES COMPLETED DATE/TIME: 01/22/2020 10:16 am REASON FOR STUDY: ms changes COMPARISON: None. TECHNIQUE: Axial images acquired through the brain without intravenous contrast. Images reviewed wi th bone, brain and subdural windows. Additional sagittal and coronal reconstructions were generated. Images stored on PACS. All CT scanners at this facility use dose modulation, iterative reconstruction, and/or weight based d osing when appropriate to reduce radiation dose to as low as reasonably achievable (ALARA). [facility]: Dose Right [facility]: CareDose [facility]: Dose Right [facility]: Teradose 4D [facility]: Smart [email or web address] RADIATION DOSE: CT Rad equipment meets quality standard of care and radiation dose reduction techniq ues were employed. CTDIvol: 53.2 mGy. DLP: 1017 mGy-cm. mGy. LIMITATIONS: None. FINDINGS: VENTRICLES: Normal size and contour. CEREBRUM: No masses. No hemorrhage. No midline shift. No evidence for acute infarction. Normal gra y/white matter differentiation. No areas of low density in the white matter. CEREBELLUM: No masses. No hemorrhage. No alteration of density. No evidence for acute infarction. EXTRAAXIAL SPACES: No fluid collections. No masses. ORBITS AND GLOBE: No intra- or extraconal masses. Normal contour of globe without masses. CALVARIUM: No fracture. PARANASAL SINUSES: No fluid or mucosal thickening. SOFT TISSUES: No mass or hematoma. OTHER: No other significant finding. IMPRESSION: NORMAL BRAIN CT WITHOUT CONTRAST. EVIDENCE OF ACUTE STROKE: NO. COMMENT: Quality ID # [id number]: Final reports with documentation of one or more dose reduction techniques (e.g., Automated exposure control, adjustment of the mA and/or kV according to patient size, use of iterative reconstruction technique) TECHNICAL DOCUMENTATION: JOB ID: [id number] 2010 [employer]- All Rights Reserved Reading location - IP/workstation name: [email or web address]
--- NOTE | 2020-01-22 10:58 | RADIOLOGY REPORT (SQ) ---
EXAM DESCRIPTION: CHEST SINGLE VIEW IMAGES COMPLETED DATE/TIME: 01/22/2020 10:23 am REASON FOR STUDY: ms changes COMPARISON: 03/10/2019 EXAM PARAMETERS: NUMBER OF VIEWS: One view. TECHNIQUE: Single frontal radiographic view of the chest acquired. RADIATION DOSE: NA LIMITATIONS: None. FINDINGS: LUNGS AND PLEURA: No opacities, masses or pneumothorax. No pleural effusion. MEDIASTINUM AND HILAR STRUCTURES: No masses. Contour normal. HEART AND VASCULAR STRUCTURES: Heart normal in size. Normal vasculature. BONES: No acute findings. HARDWARE: None in the chest. OTHER: No other significant finding. IMPRESSION: NO ACUTE RADIOGRAPHIC FINDING IN THE CHEST. TECHNICAL DOCUMENTATION: JOB ID: [id number] 03/10/2019 03/10/20192010 [employer]- All Rights Reserved Reading location - IP/workstation name: [email or web address]
[2020-01-22] MEDS ORDERED: PANTOPRAZOLE SODIUM 20 MG TABLET.DR PO ONE (15:54)
[2020-01-22] MEDS ORDERED: ACETAMINOPHEN 325 MG TABLET PO ONE (15:55)
[2020-01-22] MEDS ORDERED: BENZONATATE 100 MG CAPSULE PO ONE (15:55)
--- NOTE | 2020-01-22 18:04 | EKG REPORT ---
SEVERITY:- OTHERWISE NORMAL ECG - SINUS TACHYCARDIA : Confirmed by: Moses Oliveira MD 22-Jan-2020 18:04:07
[2020-01-22] MEDS ORDERED: HALOPERIDOL 5 MG TABLET PO ONE (21:51)
[2020-01-23] MEDS ORDERED: ALBUTEROL SULFATE HFA (90 MCG/PUFF) 8 GM MDI IH ONE (03:19)
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
[2020-01-23] MEDS: HALOPERIDOL 5 MG TABLET PO SCH (18:25)
[2020-01-23] MEDS ORDERED: ALBUTEROL SULFATE HFA (90 MCG/PUFF) 8 GM MDI IH PRN (23:23)
[2020-01-24] MEDS ORDERED: ALBUTEROL SULFATE HFA (90 MCG/PUFF) 8 GM MDI (1 MDI/ER DISP) IH PRN (00:47)
[2020-01-24] MEDS: AMOXICILLIN TR/POT CLAVULANATE 875-125 MG TAB PO SCH ×3 (01:16→17:11)
[2020-01-24] MEDS ORDERED: PANTOPRAZOLE SODIUM 40 MG TABLET.DR PO SCH (06:00)
[2020-01-24] MEDS: PANTOPRAZOLE SODIUM 40 MG TABLET.DR PO SCH (06:15)
[2020-01-24] MEDS: HALOPERIDOL 5 MG TABLET PO SCH ×2 (09:50→17:11)
[2020-01-24] MEDS: BUDESONIDE NEB 0.5 MG/2 ML AMPUL NEB SCH ×2 (09:50→17:11)
[2020-01-24] MEDS ORDERED: MOMETASONE FUROATE IH SCH (10:00)
[2020-01-24] MEDS ORDERED: (PENDING PHARMACY ID) (Azelastine/Fluticasone [Dymista Nasal Spray] 1 SPRAY) NAREB SCH (10:00)
[2020-01-24] MEDS ORDERED: BUDESONIDE IH SCH (10:00)
[2020-01-24] MEDS: UMECLIDINIUM BROMIDE 62.5 MCG/DOSE IH SCH (10:32)
--- NOTE | 2020-01-24 19:54 | ER Document Report ---
Doctor's Note Notes: 01/24/20 19:54 Patient's vital signs and previous labs, diagnostic images reviewed. Reviewed mental health notes, nurse's notes and previous providers notes. VSS. Pt is in no distress at this time. Denies any SI or HI. General: A&Ox3. Answers questions appropriately. Heart: RRR Lungs: CTAB Psych: Flat affect A/P: Continue monitoring and rec's per MH. Normal diet will continue to monitor
[2020-01-24] MEDS ORDERED: ACETAMINOPHEN 325 MG TABLET PO ONE (20:46)
[2020-01-25] MEDS: PANTOPRAZOLE SODIUM 40 MG TABLET.DR PO SCH (05:51)
[2020-01-25] MEDS ORDERED: DIPHENHYDRAMINE HCL 50 MG/ML VIAL IM ONE (09:33)
[2020-01-25] MEDS: AMOXICILLIN TR/POT CLAVULANATE 875-125 MG TAB PO SCH ×2 (09:41→18:20)
[2020-01-25] MEDS: HALOPERIDOL 5 MG TABLET PO SCH ×2 (09:43→18:21)
[2020-01-25] MEDS: UMECLIDINIUM BROMIDE 62.5 MCG/DOSE IH SCH (09:45)
[2020-01-25] MEDS: BUDESONIDE NEB 0.5 MG/2 ML AMPUL NEB SCH (09:54)
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
[2020-01-25] MEDS ORDERED: LORAZEPAM 0.5 MG TABLET PO PRN (20:50)
[2020-01-25] MEDS: BENZTROPINE MESYLATE INJ 2 MG/2 ML AMPULE IM SCH (21:45)
--- NOTE | 2020-01-25 22:26 | ER Document Report ---
Doctor's Note Notes: 01/25/20 22:00 I was asked to renew the patient's restraint orders by nursing staff. I put them in for another 2 hours after rounding on the patient. She is much more calm than she had been before but she has been difficult with staff prior to any rounding on her. She often will tell staff to leave. She sometimes gets so agitated that she is hard to control. This is why she initially went into restraints at about 6 PM this evening. We will extend the restraints for another 2 hours. However, I will go ahead and give her another half a milligram of Ativan. She is doing well after 2 hours we will take her out of restraints. We will continue to monitor closely. Patient continues to be psychotic. Well evaluating her, she kept telling me to turn on the light on the side rail to which I showed her that there was no light but she continued to believe that there was a button that I could push to turn on a light. She also tells me that she is on antibiotics and not Cogentin. She tells me that she is feeling better and hopeful "as long as she can live through the night". I reassured her that we are here to help her and we will continue to monitor and keep her safe. She is certainly not linear in her thought process and may be reacting to internal stimuli. 01/26/20 00:15 patient is doing better. We will try to trial her off restraints. Will continue to monitor. 01/26/20 07:40 Patient has done well for the remainder of the evening. She has not required further medication or restraints. We will continue to monitor. Turned her over to [facility].
[2020-01-25] MEDS ORDERED: LORAZEPAM INJ 2 MG/1 ML VIAL IM ONE (22:27)
[2020-01-26] MEDS: PANTOPRAZOLE SODIUM 40 MG TABLET.DR PO SCH (07:25)
[2020-01-26] MEDS: HALOPERIDOL 5 MG TABLET PO SCH ×2 (09:34→17:16)
[2020-01-26] MEDS: BENZTROPINE MESYLATE INJ 2 MG/2 ML AMPULE IM SCH (09:35)
[2020-01-26] MEDS: AMOXICILLIN TR/POT CLAVULANATE 875-125 MG TAB PO SCH ×2 (09:35→17:16)
[2020-01-26] MEDS: ALBUTEROL SULFATE HFA (90 MCG/PUFF) 8 GM MDI (1 MDI/ER DISP) IH PRN ×2 (13:40→23:38)
--- NOTE | 2020-01-26 13:40 | ER Document Report ---
Doctor's Note Notes: 01/26/20 13:39 PHYSICAL EXAMINATION: GENERAL: Appears well, healthy, well-nourished, no acute distress. LUNGS: Equal breath sounds bilaterally and clear to auscultation. Patient has a short expiratory phase. CARDIOVASCULAR: S1-S2, regular rate, regular rhythm. Radial pulses 2+, normal. ABDOMEN: Normoactive bowel sounds. Soft, nontender, no guarding, no rebound tenderness, and no masses palpated. PSYCH: Normal mood, normal affect. The patient has a short expiratory phase, will her 1 puff of her rescue inhaler every 6 hours as needed for shortness of breath. Patient does remember me from yesterday, but her mental status has greatly improved from yesterday. Mental health will watch the patient for 1 more day. Hopefully will discharge in the morning. We will continue current medications.
[2020-01-27] MEDS: PANTOPRAZOLE SODIUM 40 MG TABLET.DR PO SCH (05:45)
[2020-01-27] MEDS: ALBUTEROL SULFATE HFA (90 MCG/PUFF) 8 GM MDI (1 MDI/ER DISP) IH PRN (08:01)
[2020-01-27] MEDS: HALOPERIDOL 5 MG TABLET PO SCH ×2 (10:13→17:08)
[2020-01-27] MEDS: BENZTROPINE MESYLATE INJ 2 MG/2 ML AMPULE IM SCH (11:10)
[2020-01-27] MEDS ORDERED: BUDESONIDE NEB 0.5 MG/2 ML AMPUL NEB ONE (17:45)
[2020-01-28] MEDS: PANTOPRAZOLE SODIUM 40 MG TABLET.DR PO SCH (06:11)
[2020-01-28] MEDS: BENZTROPINE MESYLATE INJ 2 MG/2 ML AMPULE IM SCH (09:36)
[2020-01-28] MEDS: HALOPERIDOL 5 MG TABLET PO SCH ×2 (09:36→18:23)
--- NOTE | 2020-01-28 12:06 | ER Document Report ---
Doctor's Note Notes: 01/28/20 12:05 74-year-old female apparently brought in with homicidal ideation and confusion. Has apparently been evaluated by the psychiatric team but there is no psychiatric note delineating a definitive plan of care on the patient's chart at this time. I have spoken to Violeta the current psychiatric provider about ob taining a plan of care for the patient.
[2020-01-28] MEDS: ALBUTEROL SULFATE HFA (90 MCG/PUFF) 8 GM MDI (1 MDI/ER DISP) IH PRN (16:17)
[2020-01-29] MEDS: ALBUTEROL SULFATE HFA (90 MCG/PUFF) 8 GM MDI (1 MDI/ER DISP) IH PRN ×2 (03:44→13:41)
[2020-01-29] MEDS ORDERED: ACETAMINOPHEN 325 MG TABLET PO ONE (05:12)
[2020-01-29] MEDS: PANTOPRAZOLE SODIUM 40 MG TABLET.DR PO SCH (05:32)
[2020-01-29] MEDS ORDERED: LEVALBUTEROL HCL NEB 1.25 MG/3 ML AMPUL NEB ONE (07:41)
[2020-01-29] MEDS: BENZTROPINE MESYLATE INJ 2 MG/2 ML AMPULE IM SCH (09:56)
[2020-01-29] MEDS: HALOPERIDOL 5 MG TABLET PO SCH ×2 (09:57→18:20)
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
--- NOTE | 2020-01-29 14:47 | ER Document Report ---
Doctor's Note Notes: 01/29/20 14:45 Spoke with Violeta from the psychiatric team requesting a Covid test as they are trying to get patient into several different facilities that will require Covid tests. Discussed with Ronna the charge nurse about need for a rapid Covid test she indicates that we can only get a nonrapid test at this time. Patient is in the room in no distress at this time
[2020-01-30] MEDS: ALBUTEROL SULFATE HFA (90 MCG/PUFF) 8 GM MDI (1 MDI/ER DISP) IH PRN ×2 (00:17→05:52)
[2020-01-30] MEDS ORDERED: ACETAMINOPHEN 325 MG TABLET PO ONE (02:51)
[2020-01-30] MEDS: PANTOPRAZOLE SODIUM 40 MG TABLET.DR PO SCH (05:52)
[2020-01-30] MEDS ORDERED: IBUPROFEN 600 MG TABLET PO ONE (07:01)
[2020-01-30] MEDS: BENZTROPINE MESYLATE INJ 2 MG/2 ML AMPULE IM SCH (10:01)
[2020-01-30] MEDS: HALOPERIDOL 5 MG TABLET PO SCH (10:01)
[2020-01-30 10:33] VITALS: BP 150/76
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
--- NOTE | 2020-01-30 17:49 | PSYCHOLOGICAL NOTE ---
Psych Note - Psych Note Date seen by psych provider: 01/25/20 Time seen by psych provider: 10:20 Psych Note: Interaction began by obtaining collateral from Attending ED Nurse and was ongoing to include face to face with patient. Evaluation with patient from [phone]. Presenting Problem: Full Involuntary Commitment for Altered Mental Status, Psychosis, without previous mental health history Clinical Presentation: Acute psychosis felt to be steroid induced No mental health history No other medical concern Medication recommendation made by the psychiatric medication medical communication specialist Dr. Moon BORJAS., includes: (was to have taken place yesterday 01/24/2020) Discontinue all steroid inhalers (Albuteral, Mometasone, Budesonide) only utilize one as needed Increase Haldol to 5MG to by mouth or intramuscular twice a day for psychosis Add Cogentin 1MG by mouth or intramuscular once daily to curb the tremor side effects often associated with antipsychotic medication Add Ativan 0.5MG by mouth or intramuscular every 6 hours as needed for anxiety/agitation Impression/Plan: Recommendation to maintain Involuntary Commitment. Today's nurse is a male and immediately informed this clinician he was a trigger for tu hampton, seemed to make her think of her , causing increased anxiety to extent patient got in a spot behind her bed. She got into this spot several times as what seemed like a hiding spot or a safe place. Nurse also stated he had difficulty administering medication, but once a certain Croze Cutter was present patient would comply with what was being asked of her. She required the presence of this Croze Cutter a couple times.
--- NOTE | 2020-01-30 22:26 | PSYCHOLOGICAL NOTE ---
Psych Note - Psych Note Date seen by psych provider: 01/28/20 Time seen by psych provider: 16:48 Psych Note: Evaluation with patient from [phone]. Presenting Problem: Full Involuntary Commitment for Altered Mental Status, Psychosis, without previous mental health history Clinical Presentation: Acute psychosis felt to be steroid induced No mental health history No other medical concern Impression/Plan: Recommendation to maintain Involuntary Commitment. Today patient had concern for her son that she asked this clinician to call him in [place] as it is a duty to warn. She stated to tell him to be on the look out and if his father shows up to lock himself in his bedroom. She stated "I am frantic for his life." Consulted with Dr. Nguyen regrading the case and management of patient. ED Physician in agreement with recommendations.
--- NOTE | 2020-01-30 22:36 | PSYCHOLOGICAL NOTE ---
Psych Note - Psych Note Date seen by psych provider: 01/29/20 Time seen by psych provider: 10:30 Psych Note: Interaction with patient's Trever in the family room from [phone]. He provided legal paperwork regarding POA and Will. Educated him on the Involuntary Commitment Process, now looking for placement, and that he would only be notified with any status changes, which includes when patient is accepted. left and brought patient a small plastic grocery bag of clothing. Presenting Problem: Full Involuntary Commitment for Altered Mental Status, Psychosis, without previous mental health history Clinical Presentation: Acute psychosis felt to be steroid induced No mental health history No other medical concern Impression/Plan: Recommendation to maintain Involuntary Commitment. Sought out Involuntary Commitment Placement. patient accepted to [facility] for tomorrow. Will move forward with that placement. made aware and provided name and contact information. Consulted with Dr. Nguyen regarding the management and care of patient. Consulted with Dr. Nguyen regrading the management and care of patient. ED Physician in agreement with recommendations.
== END 2020-01-30 10:45 ==
LOC: ER 07:34
DX: F23 Brief psychotic disorder (principal); F22 Delusional disorders; R41.0 Disorientation, unspecified; F41.9 Anxiety disorder, unspecified; J44.9 Chronic obstructive pulmonary disease, unspecified; Z88.8 Allergy status to other drugs, medicaments and biological substances; Z88.1 Allergy status to other antibiotic agents; Z85.118 Personal history of other malignant neoplasm of bronchus and lung; Z79.2 Long term (current) use of antibiotics; Z79.52 Long term (current) use of systemic steroids; Z79.899 Other long term (current) drug therapy
CPT/HCPCS: 93005; 94640 ×4; 99285; 96372; 36415; 80307 ×4; 85025; 80053; 81001; 71045; 70450; 93010; A9270 ×27; J0515 ×6; J1200; J2060; J3490 ×4; J7614